=== PATIENT | female | born 1990 | race African-American/Black ===

== ENCOUNTER 2020-09-29 12:07 | Emergency (ER) | payer MEDICAID ==
[2020-09-29 16:07] VITALS: BP 147/79
[2020-09-29] MEDS ORDERED: HYDROcodone/ACETAMINOPHEN 5-325 MG TAB PO ONE (16:22)
[2020-09-29] MEDS ORDERED: BACITRACIN ZINC OINT 28.4 GM TP ONE (16:38)
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
== END 2020-09-29 17:15 | disposition home or self-care (01) ==
LOC: ED 12:07
DX: T20.10XA Burn of first degree of head, face, and neck, unspecified site, initial encounter (principal); Z98.51 Tubal ligation status; Z98.890 Other specified postprocedural states; Z79.1 Long term (current) use of non-steroidal anti-inflammatories (NSAID); Z79.899 Other long term (current) drug therapy; Y92.89 Other specified places as the place of occurrence of the external cause
CPT/HCPCS: 99282